=== PATIENT | male | born 1945 | race Caucasian/White ===

== ENCOUNTER → 2019-10-24 | Outpatient (REF) | payer MEDICARE, BC | LOC: M LAB REF 16:05 | PROVIDERS: ATTEND Surgery | DX: L30.9 Dermatitis, unspecified (principal) ==

== ENCOUNTER → 2019-12-31 | Outpatient (REF) | payer MEDICARE, BC | LOC: M LAB REF 18:29 | PROVIDERS: ATTEND Dermatology | DX: R21 Rash and other nonspecific skin eruption (principal) | CPT/HCPCS: 11104; 87070; 87077; 87186; 87252; 88305; G0463 ==

== ENCOUNTER → 2019-12-31 | Outpatient (REF) | payer MEDICARE, BC | LOC: M LAB REF 18:36 | PROVIDERS: ATTEND Dermatology | DX: L89.109 Pressure ulcer of unspecified part of back, unspecified stage (principal) ==

== ENCOUNTER → 2020-02-19 | Outpatient (REF) | payer MEDICARE, BC | LOC: M LAB REF 08:17 | PROVIDERS: ATTEND Dermatology | DX: L90.5 Scar conditions and fibrosis of skin (principal) ==

== ENCOUNTER → 2022-07-15 | Outpatient (REF) | payer MEDICARE, BC ==
[2022-07-15 18:26] LABS: AMORPHOUS SEDIMENT, URINE SMALL AMOUNT (NEGATIVE); BACTERIA, URINE SMALL AMOUNT; RBC, URINE 0-1 /hpf (0-3)
[2022-07-15 18:28] LABS: HYALINE CAST, URINE 30-40 /lpf (0-1)
[2022-07-15 18:29] LABS: SQUAMOUS EPITHELIAL CELL URINE SMALL AMOUNT /hpf (SMALL AMT)
[2022-07-15 18:58] LABS: CREATININE,RANDOM URINE 66.8 MG/DL; TOTAL PROTEIN,RANDOM URINE 375.9 MG/DL (0.0-12.0)
== END ==
LOC: M LAB REF 17:05
PROVIDERS: ATTEND Internal Medicine Nephrology
DX: R80.9 Proteinuria, unspecified (principal); R31.21 Asymptomatic microscopic hematuria

== ENCOUNTER → 2022-10-17 | Outpatient (REF) | payer MEDICARE, BC ==
[2022-10-17 18:56] LABS: CREATININE, URINE 113.3 MG/DL
[2022-10-17 19:10] LABS: MAU/CREAT RATIO 2596.6 MCG/MG (0.0-30.0)
== END ==
LOC: M LAB REF 17:02
PROVIDERS: ATTEND Internal Medicine Nephrology
DX: N18.32 Chronic kidney disease, stage 3b (principal)

== ENCOUNTER → 2023-05-31 | Outpatient (REF) | payer MEDICARE, BC ==
[2023-05-31 17:17] LABS: INR 1.17; PROTHROMBIN TIME 14.6 SECONDS (12.5-14.5)
[2023-05-31 17:24] LABS: ALBUMIN 2.5 G/DL (3.2-5.2); BILIRUBIN,TOTAL 0.6 MG/DL (0.3-1.2); CALCIUM LEVEL 8.9 MG/DL (8.3-10.6); CREATININE FOR GFR 2.08 MG/DL (0.70-1.30); POTASSIUM SERUM 3.9 MMOL/L (3.5-5.1); TOTAL PROTEIN 6.3 G/DL (5.7-8.2)
[2023-05-31 17:58] LABS: HEMATOCRIT 39.4 % (42.0-52.0); HEMOGLOBIN 13.3 g/dl (13.5-17.5); MEAN CORPUSCULAR HEMOGLOBIN 32.4 pg (27.0-33.0); MEAN CORPUSCULAR HGB CONC 33.8 g/dl (32.0-36.5); MEAN CORPUSCULAR VOLUME 95.9 fl (80.0-96.0); PLATELET COUNT, AUTOMATED 104 10^3/uL (150-450); RED BLOOD COUNT 4.11 10^6/uL (4.30-6.10); WHITE BLOOD COUNT 5.1 10^3/uL (4.0-10.0)
== END ==
LOC: M LAB REF 16:45
PROVIDERS: ATTEND Internal Medicine Gastroenterology
DX: K70.30 Alcoholic cirrhosis of liver without ascites (principal); R18.8 Other ascites